=== PATIENT | male | born 1955 | race Caucasian/White ===

== ENCOUNTER 2020-10-04 04:20 | Inpatient (IN) | payer MEDICARE ==
[2020-10-04] VITALS (8 sets, daily range): BP systolic 98–126; BP diastolic 45–67
[~2020-10-04] VITALS: Ht 175.3 cm; Wt 61.2 kg
[~2020-10-04 04:20] MED LIST: ACETAMINOPHEN325 M1 PO; CARDIZEM CD 18180 M3 PO; CELEXA20 MG PO; DEPAKOTE ER500 MG; EPIPEN0.3 MG/0.1 IM; NORCO 5-325 TA1 EACH PO; PENICILLIN V P500 MG PO; PREDNISONE 5 MG5 MG PO; RISPERDAL4 M1; SODIUM CHLORIDE1 G2 PO
[2020-10-04] MEDS ORDERED: FUROSEMIDE 40 M40 MG PO (04:36)
[2020-10-04] MEDS ORDERED: FLOMAX0.4 MG PO (04:36)
[2020-10-04] MEDS ORDERED: LIPITOR 40 MG T40 M1 PO (04:36)
[2020-10-04] MEDS ORDERED: FLONASE 0.05%50 MCG NASAL (04:36)
[2020-10-04] MEDS ORDERED: METOPROLOL TART25 MG PO (04:37)
[2020-10-04] MEDS ORDERED: MIRALAX119 GM PO (04:37)
[2020-10-04] MEDS ORDERED: SPIRIVA18 MCG INH (04:38)
[2020-10-04] MEDS ORDERED: PROAIR HFA8.5 GM INH (04:38)
[2020-10-04] MEDS ORDERED: NICOTINE TRANSD14 M1 TRANSDERM (04:38)
[2020-10-04] MEDS ORDERED: TRAZODONE HCL50 MG PO ×2 (04:39)
[2020-10-04] MEDS ORDERED: TUMS ULTRA STR470 MG PO (04:40)
[2020-10-04 04:49] LABS: ABSOLUTE LYMPHOCYTES 1.1 thou/uL (0.8-5.3); ABSOLUTE MONOCYTES 1.1 thou/uL (0.0-1.2); ABSOLUTE NEUTROPHILS 10.8 thou/uL (1.6-8.1); BASOPHILS 0.1 %; EOSINOPHILS 0.1 %; HEMATOCRIT 21.1 % (42.0-52.0); LYMPHOCYTES 8.6 %; MCH 26.5 pg (26.0-34.0); MCHC 32.4 g/dL (28.0-37.0); MCV 81.8 fL (80.0-100.0); MONOCYTES 8.6 %; MPV 7.1 fl. (7.2-11.1); NUCLEATED RBCS 0 /100WBC; PLATELET COUNT* 224 thou/uL (150-400); POLYS 82.6 %; RBC 2.58 mil/uL (4.50-6.00); RDW-CV 21.2 % (10.5-14.5); WBC 13.1 thou/uL (4.0-11.0)
[2020-10-04 04:57] LABS: HEMOGLOBIN 6.8 gm/dL (14.0-18.0)
[2020-10-04 05:01] LABS: ANION GAP 6 mmol/L (7-16); BUN 38 mg/dL (7-18); CALCIUM 8.4 mg/dL (8.5-10.1); CHLORIDE 95 mmol/L (98-107); CO2 29 mmol/L (21-32); CREATININE 0.7 mg/dL (0.6-1.3); GLUCOSE 140 mg/dL (70-99); SODIUM 130 mmol/L (136-145)
[2020-10-04] MEDS ORDERED: ELIQUIS5 MG PO (05:03)
[2020-10-04 05:04] LABS: APTT 26.5 Seconds (25.0-31.3); INR 1.1; PROTIME 11.9 Seconds (9.20-11.50)
[2020-10-04 05:11] LABS: ALBUMIN 1.7 g/dL (3.4-5.0); ALKALINE PHOSPHATASE 71 U/L (46-116); NT-PRO BRAIN NAT PEPTIDE 3218 pg/mL (<300); SGOT 11 U/L (15-37); SGPT < 6 U/L (30-65); TOTAL BILIRUBIN 0.3 mg/dL (<0.1-1.0)
--- NOTE | 2020-10-04 07:06 | NUR ---
PATIENT UP FROM ER VIA CART AT 0600. PT IS ALERT/ORIENTED TO SELF. PT IS FORGETFUL AND CONFUSED. [facility]. REPORT STATES PT'S TOOTH(TEETH) CAME OUT AND BLEED. PT IS ON ELIQUIS. PRESSURE WAS APPLIED BUT PT BEGAN VOMITING BLOOD AND BLOOD CLOTS AND BELIEVED HE ASPIRATED. PT BROUGHT TO HOSPITAL. PT ON O2 @ 2 LITERS. PT IS POOR HISTORIAN. CALL LIGHT EXPLAINED AND PT HAS USED IT TWICE TO ASK QUESTION. SIDERAILS UPX4 AND BED ALARM ON. WILL CONTINUE TO MONITOR.
[2020-10-04 11:22] LABS: CALCIUM 8.2 mg/dL (8.5-10.1); CREATININE 0.7 mg/dL (0.6-1.3); POTASSIUM 4.7 mmol/L (3.5-5.1)
[2020-10-04 11:25] LABS: MAGNESIUM 1.9 mg/dL (1.8-2.4); PHOSPHORUS* 3.7 mg/dL (2.5-4.9)
--- NOTE | 2020-10-04 13:38 | NUR ---
Cm spoke with Pt's dtr via phone. Pt is currently residing at [facility], plan [place]. Pt has been there about a week ago, Pt was inpt at [facility] for over a month, post a covid dx and bacteria in blood dx. Pt uses a cane for mobility. No home o2, currently on 2L. Pt has home neb. Dtr states that Pt had HH prior to SNF stay, but is unsure which agency. Per dtr, Pt takes "lots of psych meds." PT/OT ordered. Pt to receive a unit of blood today. Goal is back to SNF, Per Kassandra, admissions at [facility], they can accept Pt back. [facility] p:[phone] [phone]
--- NOTE | 2020-10-04 14:01 | EKG ---
[place] [address] ELECTROCARDIOGRAM REPORT Name: SIDDHARTH CARVAJAL Room: [address] ADM IN M.R.#: [id number] Admission: 10/04/20 Attend Phys: Aidan Hyde, Discharge: Date of : 51 Date of Service: 10/04/20 0426 Report #: [id number] THIS REPORT FOR: //name// [facility] ED Test Date: 2020-10-04 Test Time: 04:26:56 Pat Name: SIDDHARTH CARVAJAL Department: Room: [facility] Gender: M Video Production Assistant: [place] : 1955 Requested By: Kristi Quiñonez Order Number: [id number] MD: Erick Gaitan Measurements Intervals [place] Rate: 135 P: 47 W[place]: 143 QRS: -53 QRSD: 80 T: 41 QT: 294 QTc: 441 Interpretive Statements Sinus tachycardia Left atrial enlargement Left anterior fascicular block Abnormal R-wave progression, late transition Baseline wander in lead(s) V2 No previous ECG available for comparison Electronically Signed On 10-04-2020 14:00:52 SQL BI DEVELOPER by Erick Gaitan [email or web address] <ELECTRONICALLY SIGNED> By: Erick Gaitan MD, FACC 10/04/20 1400 5 0426 Erick Gaitan MD, FACC /EPI
--- NOTE | 2020-10-04 15:55 | 2DMMODE ---
[place] [address] 2 D/M-MODE ECHOCARDIOGRAM Name: SIDDHARTH CARVAJAL Mee Room: [address] IN .R.#: [id number] Admission: 10/04/20 Attend Phys: Aidan Hyde, Discharge: Date of : 51 Date of Service: 10/04/20 1555 Report #: [id number] THIS REPORT FOR: cc: Aidan Hyde MD,Aidan Gaitan,Erick Stearns MD [facility] ~ APPROVED REPORT Study performed: 10/04/2020 14:36:05 EXAM: Comprehensive 2D, Doppler, and color-flow Echocardiogram Patient Location: In-Patient Room #: [facility] Status: routine BSA: 1.83 HR: 79 bpm BP: 126/67 mmHg Rhythm: NSR Other Information Study Quality: Good Indications Congestive Heart Failure Dyspnea 2D Dimensions IVSd: 13.50 (7-11mm) LVOT Diam: 18.44 (18-24mm) LVDd: 41.66 mm PWd: 10.57 (7-11mm) Ascending Ao: 30.30 (22-36mm) LVDs: 21.52 (25-40mm) Aortic Root: 33.40 mm Volumes Left Atrial Volume (Systole) LA ESV Index: 44.80 mL/m2 Aortic Valve AoV Peak Figueroa.: 3.43 m/s AO Peak Gr.: 47.18 mmHg LVOT Max P.62 mmHg AO Mean Gr.: 27.20 mmHg LVOT Mean P.41 mmHg LVOT Max V: 1.29 m/s AO V2 VTI: 77.54 cm LVOT Mean V: 0.85 m/s LALO (VTI): 1.09 cm2 LVOT V1 VTI: 31.51 [place] [address] 2 D/M-MODE ECHOCARDIOGRAM Name: SIDDHARTH CARVAJAL Room: [address] IN .R.#: [id number] Admission: 10/04/20 Attend Phys: Aidan Hyde, Discharge: Date of : 51 Date of Service: 10/04/20 1555 Report #: [id number] Mitral Valve MV Mean Gr.: 3.37 mmHg E/A Ratio: 0.84 MV Decel. Time: 328.39 ms MV E Max Figueroa.: 1.12 m/s MV PHT: 95.23 ms MVA (PHT): 2.31 cm2 TDI E/Lateral E': 12.44 E/Medial E': 16.00 Medial E' Figueroa.: 0.07 m/s Lateral E' Figueroa.: 0.09 m/s Pulmonary Valve PV Peak Figueroa.: 1.08 m/s PV Peak Gr.: 4.63 mmHg Tricuspid Valve RAP Estimate: 5.00 mmHg TR Peak Gr.: 21.80 mmHg RVSP: 26.00 mmHg PA Pressure: 26.00 mmHg Left Ventricle The left ventricle is normal size. There is normal LV segmental wall motion. Mild to moderate concentric left ventricular hypertrophy. Left ventricular systolic function is normal. The left ventricular ejection fraction is within the normal range. LVEF is 60-65%. Grade I - abnormal relaxation pattern. Right Ventricle The right ventricle is normal size. The right ventricular systolic function is normal. Atria Left atrium is moderately dilated. The right atrium size is normal. Aortic Valve Severe aortic valve sclerosis. Mild to moderate aortic regurgitation. Moderate to severe aortic stenosis. Mitral Valve Moderate mitral annular calcification. Mild mitral regurgitation. No evidence of mitral valve stenosis. Tricuspid Valve The tricuspid valve [place] [address] 2 D/M-MODE ECHOCARDIOGRAM Name: YANGSARBJIT ROSABIRDIE Caban Room: [address]#: [id number] Admission: 10/04/20 Attend Phys: Aidan Hyde, Discharge: Date of : 51 Date of Service: 10/04/20 1555 Report #: [id number] regurgitation. No pulmonary hypertension. Pulmonic Valve The pulmonary valve is normal in structure. There is no pulmonic valvular regurgitation. Great Vessels The aortic root is normal in size. IVC is normal in size and collapses >50% with inspiration. Pericardium There is no pericardial effusion. <Conclusion> The left ventricle is normal size. Mild to moderate concentric left ventricular hypertrophy. Left ventricular systolic function is normal. The left ventricular ejection fraction is within the normal range. LVEF is 60-65%. Grade I - abnormal relaxation pattern. The right ventricle is normal size. Left atrium is moderately dilated. Severe aortic valve sclerosis. Mild to moderate aortic regurgitation. Moderate to severe aortic stenosis. Moderate mitral annular calcification. Mild mitral regurgitation. No evidence of mitral valve stenosis. The tricuspid valve is normal in structure. IVC is normal in size and collapses >50% with inspiration. There is no pericardial effusion. There is normal LV segmental wall motion. <ELECTRONICALLY SIGNED> By: Erick Gaitan MD, FACC 10/04/20 1555 1555 1555 Erick Gaitan MD, FACC /INF
--- NOTE | 2020-10-04 20:00 | NUR ---
RECEIVED REPORT AND ASSUMED CARE OF PT, ASSESSMENT COMPLETED. PT RESTING WITH EYES CLOSED, HOB ELEVATED. O2 ON AT 2L/NC, NO SOA NOTED. PT AWAKENS EASILY FOR VS AND ASSESSMENT. OPENS MOUTH, NO BLEEDING NOTED. TELEMETRY ON SHOWING SR. WILL CONT TO MONITOR AND ASSIST NEEDED.
[2020-10-05] VITALS (7 sets, daily range): BP systolic 94–122; BP diastolic 40–62
[2020-10-05 04:53] LABS: MCH 27.9 pg (26.0-34.0); MCHC 34.4 g/dL (28.0-37.0); MPV 7.1 fl. (7.2-11.1); RBC 2.1 mil/uL (4.50-6.00); RDW-CV 19.5 % (10.5-14.5); WBC 6.5 thou/uL (4.0-11.0)
[2020-10-05 05:04] LABS: BE 8.7 mmol/L (-2 to +3); PCO2 43.9 mmHg (35.0-45.0); PO2 119.7 mmHg (75.0-100.0); pH 7.491 (7.340-7.450)
[2020-10-05 05:14] LABS: ALBUMIN 1.5 g/dL (3.4-5.0); ALKALINE PHOSPHATASE 52 U/L (46-116); ANION GAP 4 mmol/L (7-16); BUN 38 mg/dL (7-18); CALCIUM 8.3 mg/dL (8.5-10.1); CHLORIDE 100 mmol/L (98-107); CO2 32 mmol/L (21-32); CREATININE 0.5 mg/dL (0.6-1.3); GLUCOSE 112 mg/dL (70-99); POTASSIUM 3.9 mmol/L (3.5-5.1); SGOT 5 U/L (15-37); SGPT < 6 U/L (30-65); SODIUM 136 mmol/L (136-145); TOTAL BILIRUBIN 0.1 mg/dL (<0.1-1.0); TOTAL PROTEIN 4.4 g/dL (6.4-8.2)
[2020-10-05 05:24] LABS: HEMOGLOBIN 5.9 gm/dL (14.0-18.0)
--- NOTE | 2020-10-05 06:51 | NUR ---
AWAKE FREQ TONIGHT. TOLERATING PUDDING/ICE CREAM/APPLESAUCE WITHOUT COUGHING OR CHOKING. O2 REMOVED AT THIS TIME FOR SAT CONSTANTLY 99-100%. INCONT OF URINE. HGB 5.9, DR NOTIFIED AND ORDER RECEIVED FOR TRANSFUSION. CONT PULSE OX ON. HS GOALS OF REST AND SAFETY ACHIEVED. HOURLY ROUNDING OBSERVED.
[2020-10-05 10:22] LABS: HEMATOCRIT 19.9 % (42.0-52.0); HEMOGLOBIN 6.8 gm/dL (14.0-18.0)
--- NOTE | 2020-10-05 12:49 | NUR ---
GI following. Records received from . Plan dc back to SNF in a few days. Therapies ordered.
[2020-10-05 17:07] LABS: HEMATOCRIT 25.9 % (42.0-52.0); HEMOGLOBIN 8.8 gm/dL (14.0-18.0)
--- NOTE | 2020-10-05 18:52 | NUR ---
PT IS ALERT AND ORIENTED BUT FORGETFUL AND CONFUSED AT TIMES PT IS WEAK REC'D 2 UNITS OF BLOOD NOW 8.8 HGB NO ACTIVE BLEEDING NOTED DENIES PAIN PT IS INCONTINENT HAS TO BE REMINDED TO USE URINAL NO BM TODAY DID RECEIVE BED BATH CALL LIGHT IN REACH
[2020-10-06 04:13] VITALS: BP 127/58
[2020-10-06 04:54] LABS: ABSOLUTE LYMPHOCYTES 1.1 thou/uL (0.8-5.3); ABSOLUTE MONOCYTES 1.2 thou/uL (0.0-1.2); ABSOLUTE NEUTROPHILS 7.7 thou/uL (1.6-8.1); BASOPHILS 0.5 %; EOSINOPHILS 0.4 %; HEMATOCRIT 25.2 % (42.0-52.0); HEMOGLOBIN 8.6 gm/dL (14.0-18.0); LYMPHOCYTES 11.3 %; MCH 28.6 pg (26.0-34.0); MCHC 34.2 g/dL (28.0-37.0); MCV 83.5 fL (80.0-100.0); MONOCYTES 11.5 %; NUCLEATED RBCS 0 /100WBC; PLATELET COUNT* 195 thou/uL (150-400); POLYS 76.3 %; RBC 3.02 mil/uL (4.50-6.00); RDW-CV 18.7 % (10.5-14.5); WBC 10.2 thou/uL (4.0-11.0)
[2020-10-06 05:17] LABS: ALBUMIN 1.8 g/dL (3.4-5.0); CALCIUM 8.4 mg/dL (8.5-10.1); CREATININE 0.6 mg/dL (0.6-1.3); POTASSIUM 4.1 mmol/L (3.5-5.1); TOTAL BILIRUBIN 0.3 mg/dL (<0.1-1.0)
[2020-10-06 08:00] VITALS: BP 123/52
[2020-10-06] MEDS ORDERED: DOXYCYCLINE 10100 MG PO (09:09)
[2020-10-06 11:19] VITALS: BP 110/59
--- NOTE | 2020-10-06 12:37 | NUR ---
Anticipate dc tomorrow back to [facility]. CM updated [facility] of plan dc tomorrow. Nurse updated Pt's dtr. Sean CASTRO [phone] [phone]
[2020-10-06 16:41] VITALS: BP 104/42
[2020-10-06 20:00] VITALS: BP 139/49
[2020-10-07 00:35] VITALS: BP 118/42
--- NOTE | 2020-10-07 04:15 | NUR ---
ASSUMED PT CARE AT APPROX 1930. PT IS AWAKE, ORIENTED TO SELF AND PLACE. PT IS NOT IN DISTRESS, NO DESATURATIONS NOTED ON ROOM AIR. PT IS TRACING SR ON THE ACCOUNTS COLLECTOR. PT DENIES PAIN/DISCOMFORT. CALL LIGHT WITHIN REACH. HOURLY ROUNDING DONE FOR PT SAFETY. HIGH FALL PRECAUTIONS IN PLACE.
[2020-10-07 04:19] VITALS: BP 120/57
[2020-10-07 09:45] VITALS: BP 133/64
--- NOTE | 2020-10-07 11:56 | NUR ---
Pt discharging back to [facility] today at 2pm, facility will transport. Faxed dc orders. Chart copied. Nurse report number is [phone]. CM left voicemail for Pt's dtrTianna.
--- NOTE | 2020-10-07 13:57 | NUR ---
report called in to titus at [facility]. patient discharing with medical transport. iv removed and tele removed. no personal belongings
--- NOTE | 2020-10-08 09:32 | NUR ---
I have reviewed the documentation by ASHWINI VITAL from 10/04/20 to 10/07/20 and I concur with it. ZHANNA RUBI
== END 2020-10-07 14:00 | DRG 177 ==
LOC: M.ERS 04:20 → M.TBA-ER 05:18 → M.2W 05:18
PROVIDERS: Internal Medicine; Personal Emergency Response Attendant; ADMIT Internal Medicine; ATTEND Internal Medicine
DX: J69.0 Pneumonitis due to inhalation of food and vomit (principal); E43 Unspecified severe protein-calorie malnutrition; I50.33 Acute on chronic diastolic (congestive) heart failure; D68.59 Other primary thrombophilia; D62 Acute posthemorrhagic anemia; E87.1 Hypo-osmolality and hyponatremia; G93.40 Encephalopathy, unspecified; Z68.1 Body mass index [BMI] 19.9 or less, adult; Z20.822 Contact with and (suspected) exposure to COVID-19; F31.9 Bipolar disorder, unspecified; R04.1 Hemorrhage from throat; I11.0 Hypertensive heart disease with heart failure; I25.10 Atherosclerotic heart disease of native coronary artery without angina pectoris; E78.5 Hyperlipidemia, unspecified; F17.210 Nicotine dependence, cigarettes, uncomplicated; I48.91 Unspecified atrial fibrillation; T78.3XXA Angioneurotic edema, initial encounter; I35.0 Nonrheumatic aortic (valve) stenosis; F25.9 Schizoaffective disorder, unspecified; J44.9 Chronic obstructive pulmonary disease, unspecified; Z86.16 Personal history of COVID-19; Z88.0 Allergy status to penicillin; Z90.5 Acquired absence of kidney; Z85.528 Personal history of other malignant neoplasm of kidney; Z79.01 Long term (current) use of anticoagulants